=== PATIENT | female | born 1980 | race Caucasian/White ===

== ENCOUNTER 2016-08-15 06:46 | Emergency (ER) | payer MEDICAID ==
[~2016-08-15] VITALS: Wt 81.8 kg
[2016-08-15] MEDS ORDERED: ONDANSETRON 4 MG INJ IV STA (07:02)
[2016-08-15] MEDS ORDERED: DICLOFENAC SODIUM 37.5 MG/ML VIAL IV STA (07:02)
[2016-08-15] MEDS ORDERED: morphine 4 MG/ML VIAL IV STA ×2 (07:02→08:12)
[2016-08-15] MEDS ORDERED: SOD CHLORIDE 0.9% 1,000 ML IV ONE (07:30)
[2016-08-15 07:44] LABS: BASOPHIL # 0.1 10^3/ul (0.0-0.1); EOSINOPHILS # 0.7 10^3/ul (0.0-0.5); EOSINOPHILS % 6.3 % (0.0-7.0); HEMATOCRIT 41.3 % (37.0-47.0); HEMOGLOBIN 13.8 g/dl (12.0-16.0); LYMPHOCYTES # 3.8 10^3/ul (0.8-2.9); LYMPHOCYTES % 35.7 % (15.0-51.0); MEAN CORPUSCULAR HEMOGLOBIN 28.4 pg (29.0-33.0); MEAN CORPUSCULAR HGB CONC 33.5 g/dl (32.0-37.0); MEAN CORPUSCULAR VOLUME 84.9 fl (82.0-101.0); MEAN PLATELET VOLUME 9.8 fl (7.4-10.4); MONOCYTE # 0.7 10^3/ul (0.3-0.9); MONOCYTES % 6.4 % (0.0-11.0); NEUTROPHIL # 5.3 10^3/ul (1.6-7.5); NEUTROPHILS % 50.6 % (39.0-77.0); PLATELET COUNT 310 10^3/UL (140-440); RED BLOOD COUNT 4.86 10^6/ul (4.20-5.40); RED CELL DISTRIBUTION WIDTH 13.6 % (11.5-14.5); UNCORRECTED WBC 10.6 10^3/ul (4.8-10.8); WHITE BLOOD COUNT 10.6 10^3/ul (4.8-10.8)
[2016-08-15 07:52] LABS: CONDITION 1
[2016-08-15 07:53] LABS: ALBUMIN 4.2 g/dl (3.3-4.9)
[2016-08-15 07:54] LABS: POTASSIUM 4.5 mmol/L (3.5-5.1)
[2016-08-15 07:56] LABS: BILIRUBIN,INDIRECT 0.4 mg/dl (0-1.1); BILIRUBIN,TOTAL 0.4 mg/dl (0.2-1.3); CREATININE 0.69 mg/dl (0.44-1.00)
[2016-08-15 07:57] LABS: ALBUMIN/GLOBULIN RATIO 1.07; CALCIUM 9.2 mg/dl (8.4-10.2); TOTAL PROTEIN 8.1 g/dl (6.1-8.1)
--- NOTE | 2016-08-15 08:29 | RADRPT ---
PROCEDURE: CT KUB (renal stone survey). CLINICAL INDICATION: Left-sided flank pain. Rule out ureteral stone. History of kidney stones. TECHNIQUE: CT KUB (Renal Stone Survey) without contrast was performed on a multidetector high-reso lution CT scanner. No IV contrast was administered. Coronal and sagittal reformatted images were o btained from the axial source images. Images were reviewed on a high-resolution PACS workstation. Th e total exam CTDI equals 19.99 mGy and the total exam DLP equals 1165.45 mGy-cm. One or more of the following dose reduction techniques were used: - Automated exposure control. - Adjustment of the mA and/or kV according to patient size. - Use of iterative reconstruction technique. COMPARISON: No prior studies are available for comparison. FINDINGS: CT renal stone survey: The kidneys are symmetric in size, position, and morphology. A tiny 3 mm stone is seen in the dista l left ureter immediately proximal to the distal left UVJ. This small calculus is causing mild obst ructive uropathy with mild left-sided hydroureteronephrosis. There is no evidence for obstructive ur opathy on the right side. The right ureter is clear and normal. The bladder, as visualized, is unr emarkable. CT abdomen: The lung bases are clear. The heart size is normal, without pericardial thickening or effusion. The liver is normal in size and density without focal mass or intrahepatic biliary dilatation. The spl een is normal in size and homogeneous in density. The stomach is partially collapsed, but is grossl y unremarkable. The pancreas as visualized is normal. The gallbladder and biliary tree are unremar kable and there is no evidence for biliary dilatation. The adrenal glands are symmetric and normal. The aorta is of normal caliber. There is no retroperitoneal lymphadenopathy. The romario hepatis re gion is clear. The bowel and mesentery, as visualized, are equally unremarkable. CT pelvis: The small bowel loops situated within the pelvis are unremarkable. The pelvic organs are normal. T he pelvic sidewalls and inguinal regions are clear. The sigmoid colon and rectum are all unremarkab le. No pelvic mass or adenopathy is seen. No significant free fluid is identified. No acute inflamm ation is seen. The surrounding osseous structures are unremarkable. No osteolytic or osteoblastic lesion is detect ed. IMPRESSION: 1. Tiny 3 mm calculus in the distal left ureter just immediately proximal to the left UVJ causing m ild proximal obstructive uropathy. 2. Otherwise, the remainder of the CT renal stone survey examination is unremarkable. RPTAT: HMJB .Gaurang Hogan MD, Date Time Electronically viewed and signed by .Gaurang Hogan MD, on 08/15/2016 08:29 .B/
[2016-08-15 08:58] LABS: URINE BLOOD (Dip) POC 2+ (NEGATIVE)
[2016-08-15 09:24] LABS: ADD UMIC YES; URINE BILIRUBIN (Dip) NEGATIVE (NEGATIVE); URINE BLOOD (Dip) 2+ (NEGATIVE); URINE COLOR LT. YELLOW (YELLOW); URINE GLUCOSE (Dip) NEGATIVE (NEGATIVE); URINE KETONES (Dip) NEGATIVE (NEGATIVE); URINE LEUKOCYTE ESTERASE (Dip) NEGATIVE (NEGATIVE); URINE NITRITE (Dip) NEGATIVE (NEGATIVE); URINE TOTAL PROTEIN (Dip) NEGATIVE (NEGATIVE); URINE UROBILINOGEN (Dip) 0.2 E.U./dL (0.1-1.0)
[2016-08-15] MEDS ORDERED: FENTAnyl 50 MCG/ML VIAL IV ONE (09:30)
[2016-08-15 09:33] LABS: SQUAMOUS EPITHELIAL CELL,UR FEW
[2016-08-15] MEDS ORDERED: HYDR-906 PO (10:29)
[2016-08-15] MEDS ORDERED: ONDA4TAB14 PO (10:29)
[2016-08-15] MEDS ORDERED: NAPR-688 PO (10:29)
--- NOTE | 2016-08-15 10:35 | ERD ---
ER Documentation Chief Complaint Date/Time DATE: 08/15/16 TIME: 10:32 Chief Complaint r. flank pain x2 days increased in severity this am HPI This 35-year-old female presents with right flank pain for 2 days. Became much worse this morning. She believes that she has had kidney stones in the past but has never been diagnosed with such. Pain is severe and has mild radiation to the anterior abdomen and is sharp in nature. She has not had any fevers or chills denies diarrhea or fevers but has had nausea and vomited once. ROS All systems reviewed and are negative except as per history of present illness. Medications Home Meds Active Scripts Ondansetron (Ondansetron Odt) 4 Mg Tab.rapdis, 4 MG PO Q6H Y for NAUSEA AND/OR VOMITING, #10 TAB Prov:DANISHAZION DO 08/15/16 Naproxen* (Naproxen*) 500 Mg Tablet, 500 MG PO BID, #20 TAB Prov:DANISHAZION DO 08/15/16 Hydrocodone/Acetaminophen ([place] 5-325 Tablet) 1 Each Tablet, 1 EACH PO Q6, #14 TAB Prov:ZION RAMAN DO 08/15/16 Allergies Allergies: Coded Allergies: No Known Allergy (Unverified , 06/13/12) PMhx/Soc History of Surgery: Yes (APPENDECTOMY, TUBAL LIGATION) Anesthesia Reaction: No Hx Neurological Disorder: No Hx Respiratory Disorders: No Hx Cardiac Disorders: No Hx Psychiatric Problems: No Hx Miscellaneous Medical Probl: No Hx Alcohol Use: No Hx Substance Use: No Hx Tobacco Use: No Smoking Status: Never smoker Physical Exam Vitals Vital Signs Date Time Temp Pulse Resp B/P Pulse Ox O2 Delivery O2 Flow Rate FiO2 08/15/16 08:52 98.1 69 20 111/88 98 Room Air 08/15/16 06:59 991.1 94 20 127/61 100 Physical Exam Const: [] Mild distress, appears uncomfortable holding flank with hand. Head: Atraumatic Eyes: Normal Conjunctiva ENT: Normal External Ears, Nose and Mouth. Neck: Full range of motion..~ No meningismus. Resp: Clear to auscultation bilaterally Cardio: Regular rate and rhythm, no murmurs Abd: Soft, non tender, non distended. Normal bowel sounds Skin: No petechiae or rashes Back: No midline or left CVA tenderness positive. Ext: No cyanosis, or edema Neur: Awake and alert 3, no focal deficits Psych: Normal Mood and Affect Result Diagram: 08/15/1615 08/15/1615 Results 24 hrs Laboratory Tests Test 08/15/16 07:15 08/15/16 08:55 08/15/16 08:58 Alanine Aminotransferase (ALT/SGPT) 20IU/L Albumin 4.2g/dl Albumin/Globulin Ratio 1.07 Alkaline Phosphatase 65IU/L Anion Gap 18 Aspartate Amino Transf (AST/SGOT) 20IU/L Basophils # 0.110^3/ul Basophils % 1.0% Blood Morphology Comment Blood Urea Nitrogen 14mg/dl Calcium Level 9.2mg/dl Carbon Dioxide Level 24mmol/L Chloride Level 106mmol/L Creatinine 0.69mg/dl Direct Bilirubin 0.00mg/dl Eosinophils # 0.710^3/ul Eosinophils % 6.3% Globulin 3.90g/dl Glucose Level 90mg/dl Hematocrit 41.3% Hemoglobin 13.8g/dl Indirect Bilirubin 0.4mg/dl Lipase 112U/L Lymphocytes # 3.810^3/ul Lymphocytes % 35.7% Mean Corpuscular Hemoglobin 28.4pg Mean Corpuscular Hemoglobin Concent 33.5g/dl Mean Corpuscular Volume 84.9fl Mean Platelet Volume 9.8fl Monocytes # 0.710^3/ul Monocytes % 6.4% Neutrophils # 5.310^3/ul Neutrophils % 50.6% Nucleated Red Blood Cells # 0.010^3/ul Nucleated Red Blood Cells % 0.0/100WBC Platelet Count 66831^3/UL Potassium Level 4.5mmol/L Red Blood Count 4.8610^6/ul Red Cell Distribution Width 13.6% Sodium Level 143mmol/L Total Bilirubin 0.4mg/dl Total Protein 8.1g/dl White Blood Count 10.610^3/ul Urine Bilirubin NEGATIVE Urine Clarity CLEAR Urine Color LT. YELLOW Urine Glucose NEGATIVE% Urine Hemoglobin 2+ Urine Ketones NEGATIVE Urine Leukocyte Esterase NEGATIVE Urine Microscopic RBC 5-10/HPF Urine Microscopic WBC 0-2/HPF Urine Nitrite NEGATIVE Urine Specific [place] 1.025 Urine Squamous Epithelial Cells FEW Urine Total Protein NEGATIVE Urine Urobilinogen 0.2 E.U./dL Urine pH 6.0 Bedside Urine Blood 2+ Bedside Urine Glucose (UA) Negative Bedside Urine Ketones (LAB) Negative Bedside Urine Leukocyte Esterase (L Negative Bedside Urine Nitrite (LAB) Negative Bedside Urine Protein (LAB) Negative Bedside Urine pH (LAB) 6.0 Current Medications Medications (Trade) Dose Ordered Sig/Júnior Route PRN Reason Start Time Stop Time Status Last Admin Dose Admin Sodium Chloride (NS) 1,000 ml @ 1,000 mls/hr Q1H ONCE IV 08/15/16 07:30 08/15/16 08:29 DC 08/15/16 07:35 Diclofenac Sodium (Dyloject) 37.5 mg ONCE STAT IV 08/15/16 07:02 08/15/16 07:06 DC 08/15/16 07:35 Morphine Sulfate (morphine) 4 mg ONCE STAT IV 08/15/16 07:02 08/15/16 07:06 DC 08/15/16 07:35 Ondansetron HCl (Zofran Inj) 4 mg ONCE STAT IV 08/15/16 07:02 08/15/16 07:06 DC 08/15/16 07:35 Morphine Sulfate (morphine) 4 mg ONCE STAT IV 08/15/16 08:12 08/15/16 08:13 DC 08/15/16 08:15 Fentanyl (Sublimaze) 50 mcg ONCE ONCE IV 08/15/16 09:30 08/15/16 09:31 DC 08/15/16 09:14 Procedures/MDM Ureteral stone with colic. Patient has no evidence of infection and the stone is arty at the UPJ and will likely pass soon. Patient was given anti- inflammatory diclofenac as well as 2 doses of morphine and Zofran. This resolved her symptoms. She was also given a liter of normal saline. I have very low suspicion for septic stone with her normal urinalysis and nonelevated white count. Pain is controlled emergency room and discharging with [place] as well as naproxen and Zofran. Her primary care follow-up with instructions to obtain urological referral. Also given her strict return precautions to the ER pain is not controlled. CT abdomen and pelvis interpretation: 3 mm left ureteral stone at the UPJ. Mild hydronephrosis, no free air, no obstruction, no bony abnormalities. Departure Diagnosis: Primary Impression: Ureteral colic Condition: Stable Patient Instructions: Kidney Stone W/ Colic Referrals: [facility] YOU HAVE RECEIVED A MEDICAL SCREENING EXAM AND THE RESULTS INDICATE THAT YOU DO NOT HAVE A CONDITION THAT REQUIRES URGENT TREATMENT IN THE EMERGENCY DEPARTMENT. FURTHER EVALUATION AND TREATMENT OF YOUR CONDITION CAN WAIT UNTIL YOU ARE SEEN IN YOUR DOCTORS OFFICE WITHIN THE NEXT 1-2 DAYS. IT IS YOUR RESPONSIBILITY TO MAKE AN APPOINTMENT FOR FOLOW-UP CARE. IF YOU HAVE A PRIMARY DOCTOR --you should call your primary doctor and schedule an appointment IF YOU DO NOT HAVE A PRIMARY DOCTOR YOU CAN CALL OUR PHYSICIAN REFERRAL HOTLINE AT IF YOU CAN NOT AFFORD TO SEE A PHYSICIAN YOU CAN CHOSE FROM THE FOLLOWING [facility] [address] [facility] [address] [facility] [facility] [address] [facility] [address] [facility] [address] [facility]. [facility]. [address] Additional Instructions: Llame al doctor MAANA y karen ruthie AYLEEN PARA DENTRO DE 2-3 YUEN.Dgale a la secretaria que nosotros le instruimos hacer esta ayleen. Consigue un referral para un Urology. Avise o llame si saenz condicin se empeora antes de la ayleen. Regresa aqui si peor o no mejor. ZION RAMAN DO Aug 15, 2016 10:35
[2016-08-15 11:15] VITALS: BP 119/78; PULSE 64; RESP 16; TEMP 98.1
[2016-08-15] MEDS ORDERED: OXYC-203 PO (11:22)
[2016-08-15] MEDS ORDERED: morphine 10 MG INJ IM ONE (11:30)
== END 2016-08-15 11:40 | disposition home or self-care (01) ==
LOC: E/R 06:46
DX: N23 Unspecified renal colic (principal); R11.2 Nausea with vomiting, unspecified
CPT/HCPCS: 74176; 80053; 81001; 83690; 85025; J2270; J2405; J3010; J7030; Z7610; 36415; 81003; 96372; 96374; 96375; 96376

== ENCOUNTER 2016-12-31 21:56 | Emergency (ER) | payer MEDICAID ==
[~2016-12-31] VITALS: Ht 160 cm; Wt 92.0 kg
[~2016-12-31 21:56] MED LIST: HYDR-906 PO; NAPR-688 PO; ONDA4TAB14 PO; OXYC-203 PO
[2016-12-31 22:45] VITALS: Ht 160 cm; Wt 92.0 kg
--- NOTE | 2016-12-31 23:40 | ERD ---
ER Documentation Chief Complaint Date/Time DATE: 12/31/16 TIME: 23:33 Chief Complaint FEVER, DIARRHEA, ABDOMINAL PAIN X 4 DAYS, POOR ORAL INTAKE. HPI This pleasant 36-year-old female presents to emergency department today with , reporting diarrhea 4 days. Patient reports diarrhea is watery, green , with abdominal cramping, nausea, and vomiting. Patient reports she feels dizzy, states she has not been able to eat solid food in the last 2 days, has been able to sip liquids, patient denies travel, sick contacts, blood in her stool, chest pain, shortness of breath, or palpitations. Patient reports that diarrhea was worse yesterday and that it seems to be decreasing, nausea and vomiting seem to be the same. ROS All systems reviewed and are negative except as per history of present illness. Medications Home Meds Active Scripts Oxycodone HCl/Acetaminophen (Percocet 7.5-325 mg Tablet) 1 Each Tablet, 1 EACH PO Q6, #14 TAB Prov:DANISHAZION DO 08/15/16 Ondansetron (Ondansetron Odt) 4 Mg Tab.rapdis, 4 MG PO Q6H Y for NAUSEA AND/OR VOMITING, #10 TAB Prov:DANISHAZION DO 08/15/16 Naproxen* (Naproxen*) 500 Mg Tablet, 500 MG PO BID, #20 TAB Prov:DANISHAZION DO 08/15/16 Hydrocodone/Acetaminophen ([place] 5-325 Tablet) 1 Each Tablet, 1 EACH PO Q6, #14 TAB Prov:ZION RAMAN DO 08/15/16 Allergies Allergies: Coded Allergies: No Known Allergy (Unverified , 06/13/12) PMhx/Soc History of Surgery: Yes (APPENDECTOMY, TUBAL LIGATION) Anesthesia Reaction: No Hx Neurological Disorder: No Hx Respiratory Disorders: No Hx Cardiac Disorders: No Hx Psychiatric Problems: No Hx Miscellaneous Medical Probl: No Hx Alcohol Use: No Hx Substance Use: No Hx Tobacco Use: No Smoking Status: Never smoker Physical Exam Vitals Vital Signs Date Time Temp Pulse Resp B/P Pulse Ox O2 Delivery O2 Flow Rate FiO2 12/31/16 22:45 98.5 80 17 125/77 100 Vitals stable, triage notes reviewed Physical Exam Const: No acute distress Head: Atraumatic Eyes: Normal Conjunctiva, PERRLA, EOMI ENT: Normal External Ears, Nose and Mouth, mucous membranes moist Neck: Full range of motion..~ No meningismus. Resp: Chest rise and fall symmetrically, clear to auscultation bilaterally Cardio: Regular rate and rhythm, no murmurs Abd: Abdomen distended, generalized tenderness. No CVA tenderness. No rebound tenderness. Skin: Back: No midline or flank tenderness Ext: Neur: Awake and alert Psych: Normal Mood and Affect Results 24 hrs Current Medications Medications (Trade) Dose Ordered Sig/Júnior Route PRN Reason Start Time Stop Time Status Last Admin Dose Admin Sodium Chloride (NS) 1,000 ml @ 1,000 mls/hr Q1H ONCE IV 01/01/17 00:00 01/01/17 00:59 01/01/17 00:01 Ondansetron HCl (Zofran Inj) 4 mg ONCE STAT IV 12/31/16 23:41 12/31/16 23:42 DC 01/01/17 00:01 Ketorolac Tromethamine (Toradol) 15 mg ONCE STAT IV 12/31/16 23:41 12/31/16 23:42 DC 01/01/17 00:01 Procedures/MDM This pleasant 36-year-old female presents to the emergency department with 4 day history of abdominal pain diarrhea nausea vomiting. , pancreatitis , cholecystitis, biliary colic, appendicitis not likely. Physical exam and history consistent with a viral gastroenteritis, patient is treated with normal saline, Zofran, and Toradol effectively. Patient remains in emergency department for 60 minutes is able to tolerate water and states abdominal pain has subsided when reevaluated. Patient will be discharged home with Zofran, teaching instructions for clear liquid diet advance as tolerated. Increase fluids, increase rest. Return to emergency department if symptoms fail to improve as anticipated, blood in stool, vomiting blood, worsening of overall symptoms, abdominal pain. I feel the patient is stable for discharge at this time. I have discussed results, examination findings, the treatment plan with the patient and family present prior to discharge. Indications for emergent reevaluation, side effects of medication were also discussed. All questions were answered. Patient verbalizes understanding and agrees with plan of care. Departure Diagnosis: Primary Impression: Gastroenteritis Condition: Good Patient Instructions: Gastroenteritis, Viral (6Y-Adult) Additional Instructions: Thank you for for coming to [facility] for your care today. Please ask your nurse or provider if you have questions about your care today and do not leave until all your questions have been answered. Please use any medications given as directed and follow-up with your doctor (or the doctor you were referred to) in the next 2-3 days. If you do not have a primary care doctor you may follow up at [place] [facility] [place] You may also use motrin and tylenol as needed for fever and/or pain unless instructed otherwise by your provider or nurse. Indications for more urgent follow-up have been discussed, but you may return to the Emergency Department at ANY time for any worrisome or worsening symptoms. If you have abdominal pain, please know that no test or exam you received is perfect and you should follow up within 8 hours for continued pain. If you had any imaging studies today, such as an X-Ray or CT Scan, these studies will be reviewed later by a radiologist. You will be called if there are important findings that were not identified today, so make sure the contact information you provided at registration is correct. If you received any narcotic pain control medicine today, such as Vicodin, Morphine or Dilaudid, your coordination and judgment may be affected for a number of hours. Please do not drive or operate heavy machinery, and you may want someone to assist you at home. If you were given a prescription for narcotic medication, be aware that it is very addictive- use sparingly and only if necessary. FEDERICO GARCIA Dec 31, 2016 23:40
[2016-12-31] MEDS ORDERED: KETOROLAC 15 MG INJ IV STA (23:41)
[2016-12-31] MEDS ORDERED: ONDANSETRON 4 MG INJ IV STA (23:41)
[2017-01-01] MEDS ORDERED: SOD CHLORIDE 0.9% 1,000 ML IV ONE
[2017-01-01] MEDS ORDERED: ONDA4TAB14 PO (00:45)
== END 2017-01-01 00:55 | disposition home or self-care (01) ==
LOC: FTE 21:56
DX: K52.9 Noninfective gastroenteritis and colitis, unspecified (principal)
CPT/HCPCS: 96374; 96375; J1885; J2405; J7030; Z7502

== ENCOUNTER 2017-04-27 19:46 | Emergency (ER) | payer MEDICAID ==
[~2017-04-27] VITALS: Ht 165.1 cm; Wt 92.0 kg
[2017-04-27 20:08] VITALS: Ht 165.1 cm; Wt 92.0 kg
[2017-04-27] MEDS ORDERED: KETOROLAC 60 MG INJ IM STA (22:24)
[2017-04-27] MEDS ORDERED: GUAIFENESIN/CODEINE 5ML CUP PO ONE (22:30)
--- NOTE | 2017-04-27 22:52 | ERD ---
ER Documentation Chief Complaint Date/Time DATE: 04/27/17 TIME: 22:50 Chief Complaint pt reports cough and fever for 4 days HPI 36-year-old female presents to the emergency department for complaints of cough , fever, runny nose nasal congestion, on and off wheezing for 4 days. Patient has been having body aches. Patient took Tylenol at home with much relief. Patient does not have any chest pain palpitations. Patient denies any dizziness. Patient denies any sick contacts. ROS All systems reviewed and are negative except as per history of present illness. Medications Home Meds Active Scripts Ibuprofen* (Motrin*) 600 Mg Tab, 600 MG PO Q6H Y for PAIN AND OR ELEVATED TEMP, #30 TAB Prov:DELTA TAMEZ NP 04/27/17 Cetirizine Hcl* (Zyrtec*) 10 Mg Capsule, 10 MG PO DAILY, #30 TAB.CHEW Prov:DELTA TAMEZ NP 04/27/17 Guaifenesin-Codeine Phosphate* (Guaifenesin* AC Cough Syrup) 473 Ml Liquid, 10 ML PO Q4H Y for COUGH, #120 ML Prov:DELTA TAMEZ NP 04/27/17 Albuterol Sulfate* (Proair HFA*) 8.5 Gm Hfa.aer.ad, 2 PUFF INH Q4H Y for WHEEZING AND SOB, #1 INHALER Prov:DELTA TAMEZ NP 04/27/17 Ondansetron (Ondansetron Odt) 4 Mg Tab.rapdis, 4 MG PO Q6H Y for NAUSEA AND/OR VOMITING, #10 TAB Prov:JOSEFEDERICO 01/01/17 Oxycodone HCl/Acetaminophen (Percocet 7.5-325 mg Tablet) 1 Each Tablet, 1 EACH PO Q6, #14 TAB Prov:ZION RAMAN DO 08/15/16 Ondansetron (Ondansetron Odt) 4 Mg Tab.rapdis, 4 MG PO Q6H Y for NAUSEA AND/OR VOMITING, #10 TAB Prov:ZION RAMAN DO 08/15/16 Naproxen* (Naproxen*) 500 Mg Tablet, 500 MG PO BID, #20 TAB Prov:ZION RAMAN DO 08/15/16 Hydrocodone/Acetaminophen ([place] 5-325 Tablet) 1 Each Tablet, 1 EACH PO Q6, #14 TAB Prov:ZION RAMAN DO 08/15/16 Allergies Allergies: Coded Allergies: No Known Allergy (Unverified , 06/13/12) PMhx/Soc History of Surgery: Yes (APPENDECTOMY, TUBAL LIGATION) Anesthesia Reaction: No Hx Neurological Disorder: No Hx Respiratory Disorders: No Hx Cardiac Disorders: No Hx Psychiatric Problems: No Hx Miscellaneous Medical Probl: No Hx Alcohol Use: No Hx Substance Use: No Hx Tobacco Use: No Smoking Status: Never smoker FmHx Family History: No coronary disease, No diabetes, No other Physical Exam Vitals Vital Signs Date Time Temp Pulse Resp B/P Pulse Ox O2 Delivery O2 Flow Rate FiO2 04/27/17 20:08 99.2 80 16 118/58 99 Physical Exam GENERAL: The patient is well developed and appropriate for usual state of health, in no apparent distress. CHEST: Clear to auscultation bilaterally. There are no rales, wheezes or rhonchi. HEART: Regular rate and rhythm. No murmurs, clicks, rubs or gallops. No S3 or S4. ABDOMEN: Soft, nontender and nondistended. Good bowel sounds. No rebound or guarding. No gross peritonitis. No gross organomegaly or masses. No Riddle sign or McBurney point tenderness. BACK: No midline or flank tenderness. EXTREMITIES: Equal pulses bilaterally. There is no peripheral clubbing, cyanosis or edema. No focal swelling or erythema. Full range of motion. Grossly neurovascularly intact. NEURO: Alert and oriented. Cranial nerves 2-12 intact. Motor strength in all 4 extremities with 5/5 strength. Sensation grossly intact. Normal speech and gait. SKIN: There is no apparent rash or petechia. The skin is warm and dry. HEMATOLOGIC AND LYMPHATIC: There is no evidence of excessive bruising or lymphedema. No gross cervical, axillary, or inguinal lymphadenopathy. Results 24 hrs Current Medications Medications (Trade) Dose Ordered Sig/Júnior Route PRN Reason Start Time Stop Time Status Last Admin Dose Admin Ketorolac Tromethamine (Toradol) 60 mg ONCE STAT IM 04/27/17 22:24 04/27/17 22:26 DC 04/27/17 22:49 Guaifenesin/ Codeine Phosphate (Robitussin Ac Liquid Cup) 10 ml ONCE ONCE PO 04/27/17 22:30 04/27/17 22:31 DC 04/27/17 22:48 Patient was given cough medication here in the emergency department, verbalized very much better afterwards. Patient was given medication for pain here in emergency department, after treatment, patient verbalized feeling much better. Patient's pain is improved. PROCEDURE: XR Chest. CLINICAL INDICATION: Cough. TECHNIQUE: Single frontal view. COMPARISON: 11/15/2008. FINDINGS: The lungs are clear. The heart size is normal. There is no pleural effusion. There is no pneumothorax. IMPRESSION: 1. Normal chest radiograph. 2. No change from 11/15/2008. RPTAT: QQ .Kirill Castillo MD, MD Date Time Electronically viewed and signed by .Kirill Castillo MD, MD on 04/27/2017 23:23 .R/ CC: DELTA TAMEZ [employer] Procedures/MDM Medical Decision Making: Patient symptoms are most likely consistent with acute bronchitis, which viral in origin. There is low suspicion for Pneumonia at this time since patients lungs sounds are clear, patient O2 saturation is normal and patient doesnt show any respiratory distress. Patients chest xray doesnt show infiltrates or any other cardiopulmonary emergencies at this time. There is low suspicion for other cardiopulmonary emergencies at this time such as CHF, Pulmonary Embolism, Pneumothorax, Aortic Aneurysm or any other cardiopulmonary emergencies at this time. There is low suspicion for sepsis. Patient appears well and is hemodynamically stable. Fever is controlled with medicines. Disposition: Home. Condition: Stable Prescriptions: Guaifenasin with codeine, Zyrtec, albuterol, ibuprofen Instructions: Patient is advised to take medications as prescribed. Patient is advised to rest. Patient advised to increase fluid intake, do humidifier at home and if possible, do salt water gargles. Patient is advised that if symptoms are worse, shortness of breath, uncontrolled fever, stridor, vomiting, worst signs and symptoms to return to emergency department immediately. Otherwise, patient is advised to follow up with primary doctor in 5-7 days. Disclaimer: Inadvertent spelling and grammatical errors are likely due to EHR/ dictation software use and do not reflect on the overall quality of patient care. Also, please note that the electronic time recorded on this note does not necessarily reflect the actual time of the patient encounter. Departure Diagnosis: Primary Impression: Acute bronchitis Bronchitis organism: unspecified organism Qualified Code: J20.9 - Acute bronchitis, unspecified organism Condition: Stable Patient Instructions: Bronchitis With Wheezing (Adult) Additional Instructions: Patient is advised to take medications as prescribed. Patient is advised to rest. Patient advised to increase fluid intake, do humidifier at home and if possible, do salt water gargles. Patient is advised that if symptoms are worse, shortness of breath, uncontrolled fever, stridor, vomiting, worst signs and symptoms to return to emergency department immediately. Otherwise, patient is advised to follow up with primary doctor in 5-7 days. DELTA TAMEZ NP Apr 27, 2017 22:52
--- NOTE | 2017-04-27 23:23 | RADRPT ---
PROCEDURE: XR Chest. CLINICAL INDICATION: Cough. TECHNIQUE: Single frontal view. COMPARISON: 11/15/2008. FINDINGS: The lungs are clear. The heart size is normal. There is no pleural effusion. There is no pneumothorax. IMPRESSION: 1. Normal chest radiograph. 2. No change from 11/15/2008. RPTAT: QQ .Kirill Castillo MD, MD Date Time Electronically viewed and signed by .Kirill Castillo MD, MD on 04/27/2017 23:23 .R/
[2017-04-27] MEDS ORDERED: GUAI473L22 PO (23:31)
[2017-04-27] MEDS ORDERED: IBUP-1542 PO (23:31)
[2017-04-27] MEDS ORDERED: ALBU8.5H3 INH (23:31)
[2017-04-27] MEDS ORDERED: CETI10CA PO (23:31)
== END 2017-04-27 23:39 | disposition home or self-care (01) ==
LOC: FTE 19:46
DX: J20.9 Acute bronchitis, unspecified (principal)
CPT/HCPCS: 71010; 96372; J1885; Z7502; Z7610

== ENCOUNTER 2017-12-14 21:59 | Emergency (ER) | END 2017-12-15 03:28 | disposition home or self-care (01) ==

== ENCOUNTER 2018-08-02 08:16 | Emergency (ER) | payer MEDICAID, OTHER ==
[~2018-08-02] VITALS: Wt 93.8 kg
[~2018-08-02 08:16] MED LIST changes: +ALBU8.5H8 INH; +CETI10CA PO; +FLUT9.9S NASAL; +GUAI-111 PO; +GUAI473L22 PO; +HYDR-4011 PO; -HYDR-906 PO; +IBUP-1542 PO
[2018-08-02] MEDS ORDERED: KETOROLAC 15 MG INJ IV STA (08:35)
[2018-08-02] MEDS ORDERED: SODIUM CHLORIDE 0.9% 1L BAG IV* STA (08:35)
[2018-08-02] MEDS ORDERED: ONDANSETRON 4 MG INJ IV STA (08:35)
--- NOTE | 2018-08-02 08:49 | ERD ---
ER Documentation Chief Complaint Chief Complaint flu like symptoms x 2 days,body aches, ap, bvomiting HPI This is a 37-year-old female with a past medical history of appendicitis status post appendectomy, status post and bilateral tubal ligation who is presenting with 2 days of flulike symptoms, fever, chills, full body aches, transient waxing and waning general cramping abdominal pain, nausea and multiple episodes of nonbilious nonbloody vomiting. The patient does not endorse any exacerbating or alleviating factors. She has not eaten anything out of the ordinary. She does not have any known sick contacts. The patient has had no headache or vision changes. The patient does not endorse neck or back pain. The patient denies lightheadedness or dizziness. The patient has had no chest pain or trouble breathing. The patient denies changes to bowel movements or urination. The patient has had no focal deficits. The patient has had no weakness or numbness or tingling to the face or extremities. ROS All systems reviewed and are negative except as per history of present illness. Medications Home Meds Reported Medications Guaifenesin* (Robitussin*) 100 Mg/5 Ml Syrup, 200 MG PO Q4H PRN for COUGH, ML 08/02/18 Discontinued Scripts Guaifenesin/Pseudoephedrne HCl (Mucinex D ER 600-60 mg Tablet) 1 Each Tab.er.12h, 1 EACH PO BID, #10 TAB Prov:JOSE,FEDERICO 12/15/17 Ibuprofen* (Ibuprofen*) 600 Mg Tablet, 600 MG PO Q6, #20 TAB Prov:JOSE,FEDERICO 12/15/17 Fluticasone Propionate (Flonase Allergy Relief) 9.9 Ml Hunt.susp, 1 SPRAY NASAL BID, #1 BOTTLE TO EACH NOSTRIL Prov:JOSE,FEDERICO 12/15/17 Ibuprofen* (Motrin*) 600 Mg Tab, 600 MG PO Q6H PRN for PAIN AND OR ELEVATED TEMP, #30 TAB Prov:DELTA TAMEZ NP 04/27/17 Cetirizine Hcl* (Zyrtec*) 10 Mg Capsule, 10 MG PO DAILY, #30 TAB.CHEW Prov:DELTA TAMEZ NP 04/27/17 Guaifenesin-Codeine Phosphate* (Guaifenesin* AC Cough Syrup) 473 Ml Liquid, 10 ML PO Q4H PRN for COUGH, #120 ML Prov:DELTA TAMEZ [employer]INE[employer] 04/27/17 Albuterol Sulfate* (Proair HFA*) 8.5 Gm Hfa.aer.ad, 2 PUFF INH Q4H PRN for WHEEZING AND SOB, #1 INHALER Prov:DELTA TAMEZ [employer]INE[employer] 04/27/17 Ondansetron (Ondansetron Odt) 4 Mg Tab.rapdis, 4 MG PO Q6H PRN for NAUSEA AND/OR VOMITING, #10 TAB Prov:JOSEFEDERICO 01/01/17 Oxycodone HCl/Acetaminophen (Percocet 7.5-325 mg Tablet) 1 Each Tablet, 1 EACH PO Q6, #14 TAB Prov:ZION RAMAN DO 08/15/16 Ondansetron (Ondansetron Odt) 4 Mg Tab.rapdis, 4 MG PO Q6H PRN for NAUSEA AND/OR VOMITING, #10 TAB Prov:ZION RAMAN DO 08/15/16 Naproxen* (Naproxen*) 500 Mg Tablet, 500 MG PO BID, #20 TAB Prov:ZION RAMNA DO 08/15/16 Hydrocodone/Acetaminophen ([place] 5-325 Tablet) 1 Each Tablet, 1 EACH PO Q6, #14 TAB Prov:GREENPIPEZION DO 08/15/16 Allergies Allergies: Coded Allergies: No Known Allergy (Unverified , 06/13/12) PMhx/Soc History of Surgery: Yes (APPENDECTOMY, TUBAL LIGATION) Anesthesia Reaction: No Hx Neurological Disorder: No Hx Respiratory Disorders: No Hx Cardiac Disorders: No Hx Psychiatric Problems: No Hx Miscellaneous Medical Probl: No Hx Alcohol Use: No Hx Substance Use: No Hx Tobacco Use: No FmHx Family History: No diabetes Physical Exam Vitals Vital Signs Date Temp Pulse Resp B/P (MAP) Pulse Ox O2 O2 Flow FiO2 Time Delivery Rate 08/02/18 92 20 112/57 98 Room Air 10:39 (75) 08/02/18 101.2 09:10 08/02/18 102.6 120 18 140/79 100 08:20 (99) Physical Exam Const: No apparent distress, well-developed, well-nourished Head: Normocephalic, Atraumatic Eyes: Normal Conjunctiva. Extraocular movements intact. Pupils equal, round and reactive to light ENT: Normal External Ears, Nose and Mouth. Neck: Full range of motion. No meningismus. Resp: Clear to auscultation bilaterally, No wheezes, rales or rhonchi Cardio: Regular rhythm. Tachycardia. No murmurs, rubs or gallops Abd: Soft, non tender, non distended. Normal bowel sounds Skin: No petechiae or rashes Back: No midline tenderness. No CVA tenderness Ext: No cyanosis, or edema Neur: Awake and alert, oriented 4. Cranial nerves intact. No facial droop. Normal strength, sensation and coordination. Psych: Normal Mood and Affect Result Diagram: 08/02/18 0945 08/02/18 0854 Results 24 hrs Laboratory Tests Test 08/02/18 08:52 08/02/18 08:54 08/02/18 09:45 08/02/18 10:45 POC Venous 1.7 mmol/L Lactate Sodium Level 143 mmol/L Potassium Level 4.2 mmol/L Chloride Level 103 mmol/L Carbon Dioxide 26 mmol/L Level Anion Gap 14 Blood Urea 12 mg/dl Nitrogen Creatinine 0.52 mg/dl Est Glomerular > 60 mL/min Filtrat Rate mL/min Glucose Level 100 mg/dl Calcium Level 9.1 mg/dl Total Bilirubin 0.3 mg/dl Direct Bilirubin 0.00 mg/dl Indirect 0.3 mg/dl Bilirubin Aspartate Amino 22 IU/L Transf (AST/SGOT) Alanine 17 IU/L Aminotransferase (ALT/SGPT) Alkaline 64 IU/L Phosphatase Troponin I < 0.012 ng/ml Total Protein 7.9 g/dl Albumin 4.6 g/dl Globulin 3.30 g/dl Albumin/Globulin 1.39 Ratio White Blood Count 4.9 10^3/ul Red Blood Count 4.29 10^6/ul Hemoglobin 12.2 g/dl Hematocrit 36.9 % Mean Corpuscular 86.0 fl Volume Mean Corpuscular 28.4 pg Hemoglobin Mean Corpuscular 33.1 g/dl Hemoglobin Concen t Red Cell 13.0 % Distribution Width Platelet Count 242 10^3/UL Mean Platelet 10.6 fl Volume Immature 0.200 % Granulocytes % Neutrophils % 69.1 % Lymphocytes % 13.7 % Monocytes % 8.8 % Eosinophils % 7.8 % Basophils % 0.4 % Nucleated Red 0.0 /100WBC Blood Cells % Immature 0.010 10^3/ul Granulocytes # Neutrophils # 3.4 10^3/ul Lymphocytes # 0.7 10^3/ul Monocytes # 0.4 10^3/ul Eosinophils # 0.4 10^3/ul Basophils # 0.0 10^3/ul Nucleated Red 0.0 10^3/ul Blood Cells # Prothrombin Time 13.9 Sec Prothrombin Time 1.1 Ratio INR International 1.06 Normalized Ratio Activated 28.5 Sec Partial Thrombopl ast Time Urine Color YELLOW Urine Clarity CLEAR Urine pH 8.0 Urine Specific 1.021 [place] Urine Ketones NEGATIVE mg/dL Urine Nitrite NEGATIVE mg/dL Urine Bilirubin NEGATIVE mg/dL Urine NEGATIVE mg/dL Urobilinogen Urine Leukocyte NEGATIVE Margaux/ul Esterase Urine Hemoglobin NEGATIVE mg/dL Urine Glucose NEGATIVE mg/dL Urine Total NEGATIVE mg/dl Protein Test 08/02/18 10:54 POC Venous 0.3 mmol/L Lactate Current Medications Medications Dose Sig/Júnior Start Time Status Last (Trade) Ordered Route PRN Stop Time Admin Dose Reason Admin Sodium 2,810 ml BOLUS OVER 2 08/02/18 DC 08/02/18 Chloride HOURS STAT 08:35 08/02/18 09:10 (NS) IV* 08:37 Ketorolac 15 mg ONCE STAT 08/02/18 DC 08/02/18 Tromethamine IV 08:35 08/02/18 09:08 (Toradol) 08:37 650 mg ONCE ONCE 08/02/18 DC 08/02/18 Acetaminophen PO 09:00 08/02/18 09:10 (Tylenol 09:18 Tab) Ondansetron 8 mg ONCE STAT 08/02/18 DC 08/02/18 HCl (Zofran IV 08:35 08/02/18 09:16 Inj) 08:37 Procedures/MDM MDM The patient's presentation warrants further investigation. Previous medical isabell rds, if available, were reviewed. LABS The patient's laboratory testing was obtained and reviewed. No emergent treatment was required unless described below. CBC: No E/o of systemic infection or severe anemia or thrombocytopenia CMP: No E/o severe acidosis or alkalosis or renal failure or liver disease or diabetic ketoacidosis PT/INR: No E/o significant coagulopathy Lactate: No E/o severe sepsis x 2 Troponin: No E/o acute ischemia Urine: No E/o acute infection or hematuria EKG EKG read by me: Rate/Rhythm: Sinus tachycardia at 106 bpm Intervals: Normal [place]: Normal Impression: No evidence of acute ischemia. Sinus tachycardia. IMAGING Imaging and Radiology interpretation reviewed. CXR COMPARISON: 04/27/2017 FINDINGS: The heart and mediastinum are within normal limits. The lungs are clear. There is no pleural effusion or pneumothorax. The bones and soft tissue show no acute change. IMPRESSION: No definite abnormalities are identified. Electronically viewed and signed by Dane Jenkins Physician on 08/02/2018 09:11 TREATMENT/DISPOSITION The patient presents with flulike symptoms. The patient is febrile and tachycardic. A sepsis workup was completed. The patient's lactic acid is normal. While the patient does meet criteria for a systemic inflammatory response syndrome, I have low suspicion for sepsis. The patient was given IV fluids, but I have low suspicion for a bacterial infection. The patient does not have evidence of pneumonia. The patient's urinalysis is unremarkable. The patient does not have evidence of soft tissue infection. I have low suspicion for bacteremia. While the patient's influenza test is negative, I do suspect a flulike viral illness to be the etiology of her symptoms. I suspect that her symptoms will be self-limited. I do not feel the patient requires inpatient management at this time. The patient was treated with IV fluids, Toradol and Tylenol with significant improvement of her symptoms. The patient reports improvement of her fever. Her tachycardia resolved. Her myalgias and nausea improved as well. Upon reevaluation of the patient, symptoms have improved. No emergent diagnoses were identified. At this time, I feel that the patient stable for discharge. The patient was instructed to follow-up with a primary care physician in 1-3 days. The patient will be given strict precautions with which to return to the emergency department. Prescriptions: Ibuprofen, Zofran The patient's blood pressure was elevated at greater than 120/80 while in the emergency department. The patient was otherwise stable with no evidence of hypertensive urgency or emergency. The patient does not require admission for blood pressure control. I have discussed with the patient the risks of hypertension. I have instructed the patient to return to the ER for any new or worsening symptoms including chest pain, shortness of breath, headache, blurred vision, confusion, nausea, vomiting or LOC. I have advised the patient to follow up with the primary care physician for outpatient monitoring and treatment for hypertension in 1-3 days. Disclaimer: Inadvertent spelling and grammatical errors are likely due to EHR/dictation software use and do not reflect on the overall quality of patient care. Note that the electronic time recorded on this note does not necessarily reflect the actual time of the patient encounter. Departure Diagnosis: Primary Impression: Influenza-like symptoms Additional Impressions: Fever Fever type: unspecified Qualified Codes: R50.9 - Fever, unspecified Tachycardia Myalgia Nausea and vomiting Vomiting type: unspecified Vomiting Intractability: non-intractable Qualified Codes: R11.2 - Nausea with vomiting, unspecified Abdominal cramping Condition: Stable CHARAN GALLARDO MD Aug 02, 2018 08:49
[2018-08-02] MEDS ORDERED: ACETAMINOPHEN 325 MG TAB PO ONE (09:00)
[2018-08-02] MEDS ORDERED: GUAI-637 PO (09:45)
[2018-08-02] MEDS ORDERED: ZOF8 PO (12:32)
[2018-08-02] MEDS ORDERED: IBUP-1542 PO (12:32)
[2018-08-02 13:17] VITALS: BP 111/89; PULSE 93; RESP 20
== END 2018-08-02 13:25 | disposition home or self-care (01) ==
LOC: E/R 08:16
DX: R50.9 Fever, unspecified (principal); R00.0 Tachycardia, unspecified; M79.10 Myalgia, unspecified site; R11.2 Nausea with vomiting, unspecified; R10.9 Unspecified abdominal pain
CPT/HCPCS: 36415; 71045; 80053; 81003; 83605; 84484; 85025; 85610; 85730; 87040; 87086; 87400; 93005; 96374; 96375; J1885; J2405; J7030; Z7502; Z7610

== ENCOUNTER 2018-12-22 20:30 | Emergency (ER) | payer OTHER ==
[~2018-12-22] VITALS: Ht 162.6 cm; Wt 96.0 kg
[~2018-12-22 20:30] MED LIST changes: -ALBU8.5H8 INH; -CETI10CA PO; -FLUT9.9S NASAL; -GUAI-111 PO; +GUAI-637 PO; -GUAI473L22 PO; -HYDR-4011 PO; -NAPR-688 PO; -ONDA4TAB14 PO; -OXYC-203 PO; +ZOF8 PO
[2018-12-22 21:09] VITALS: Ht 162.6 cm; Wt 96.0 kg
[2018-12-23] MEDS ORDERED: KETOROLAC 30 MG INJ IM STA (00:57)
[2018-12-23] MEDS ORDERED: PRED20TA PO (00:59)
[2018-12-23] MEDS ORDERED: TRAM50TA2 PO (00:59)
[2018-12-23] MEDS ORDERED: NAPR-985 PO (00:59)
[2018-12-23] MEDS ORDERED: DEXAMETHASONE 10 MG/ML 1 ML INJ IM ONE (01:00)
--- NOTE | 2018-12-23 01:03 | ERD ---
ER Documentation Chief Complaint Chief Complaint low back pain after cleaning this morning HPI 2-year-old female with no reported past medical surgical history presents with complaint of lower back pain since this morning. Patient states she was cleaning an area on her home and bent over and suddenly felt a sharp pain to middle of lower back. Pain radiating down lower extremity. She denies any history of chronic back pain or recent injury or fall. She denies any red flag symptoms such as lower extremity paresthesias or weakness, urinary or bowel incontinence. ROS All systems reviewed and are negative except as per history of present illness. Medications Home Meds Active Scripts Naproxen* (Naprosyn*) 500 Mg Tablet, 500 MG PO BID PRN for PAIN AND/OR INFLAMMATION, #30 TAB Prov:DIEGO BUCHANAN PA-C 12/23/18 Tramadol HCl (Tramadol HCl) 50 Mg Tablet, 50 MG PO Q4 PRN for PAIN, #10 TAB Prov:DIEGO BUCHANAN PA-C 12/23/18 Prednisone* (Prednisone*) 20 Mg Tab, 40 MG PO DAILY for 4 Days, TAB Prov:DIEGO BUCHANAN PA-C 12/23/18 Ondansetron Hcl* (Zofran*) 8 Mg Tab, 8 MG PO Q6H PRN for NAUSEA AND OR VOMITING, #20 TAB Prov:CHARAN GALLARDO MD 08/02/18 Ibuprofen* (Motrin*) 600 Mg Tab, 600 MG PO Q6H PRN for PAIN AND OR ELEVATED TEMP, #30 TAB Prov:CHARAN GALLARDO MD 08/02/18 Reported Medications Guaifenesin* (Robitussin*) 100 Mg/5 Ml Syrup, 200 MG PO Q4H PRN for COUGH, ML 08/02/18 Allergies Allergies: Coded Allergies: No Known Allergy (Unverified , 06/13/12) PMhx/Soc History of Surgery: Yes (APPENDECTOMY, TUBAL LIGATION, ) Anesthesia Reaction: No Hx Neurological Disorder: No Hx Respiratory Disorders: No Hx Cardiac Disorders: Yes (HTN) Hx Psychiatric Problems: No Hx Miscellaneous Medical Probl: No Hx Alcohol Use: No Hx Substance Use: No Hx Tobacco Use: No Smoking Status: Never smoker FmHx Family History: No diabetes, No coronary disease, No other Physical Exam Vitals Vital Signs Date Temp Pulse Resp B/P (MAP) Pulse Ox O2 O2 Flow FiO2 Time Delivery Rate 12/22/18 98.8 88 18 142/60 99 21:09 (87) Physical Exam I have reviewed the triage vital signs. Const: Well nourished, well developed, appears stated age Eyes: PERRL, no conjunctival injection HENT: NCAT, Neck supple without meningismus CV: RRR, Warm, well-perfused extremities RESP: CTAB, Unlabored respiratory effort GI: soft, non-tender, non-distended, no masses MSK: No gross deformities appreciated Back Exam: Skin: No bruising or rash Compartments: Soft Motor: RLE positive straigh leg test, Normal flexion and extension of bilateral hip/knee/ankle/foot Sensation: Intact to light touch throughout Bones: No midline TTP Skin: Warm, dry. No rashes Neuro: grossly non focal Psych: Appropriate mood and affect. Results 24 hrs Current Medications Medications Dose Sig/Júnior Start Time Status Last (Trade) Ordered Route PRN Stop Time Admin Dose Reason Admin Ketorolac 30 mg ONCE STAT 12/23/18 DC Tromethamine IM 00:57 (Toradol) 12/23/18 00:59 10 mg ONCE ONCE 12/23/18 Dexamethasone IM 01:00 (Decadron) 12/23/18 01:01 Procedures/MDM 38-year-old female presents with complaint of lower back pain. Symptoms likely musculoskeletal in nature given no history of trauma or fall. Likely has a strain of lower back. Low suspicion for acute cord compression or cauda equina at this time, given presentation and symptoms, including epidural abscess or hematoma. Patient has no history of malignancy, active or distant history. Patient has no unexplained weight loss. No recent fevers, rigors, malaise, or re cent infection. No history of IVDU or skin-popping. Patient does not have any history concerning for saddle anesthesia/perianal sensory loss or complaining of decreased rectal tone. Patient does not have urinary retention or inability to control urine from overflow. Patient has no tenderness overlying spinous process. Patient has no focal weakness on examination. Given exam and history, low suspicion for cord compression, cauda equina, epidural abscess/hematoma. Distally neurovascularly intact. Query likely musculoskeletal component. Discussed pain control,and follow up with PMD. Cautious return precautions discussed w/ full understanding ED course/plan: Toradol, Decadron, will discharge with short course of steroids, appropriate pain medications DISPOSITION PLAN: We discussed follow up with the patient's primary care doctor within 24 to 48 hours. Patient counseled regarding my diagnostic impression and care plan. Prior to discharge all questions answered. Pt agrees with treatment plan and understands strict return precautions. Precautionary instructions provided including instructions to return to the ER if not improving or for any worsening or changing symptoms or concerns. Disclaimer: Inadvertent spelling and grammatical errors are likely due to EHR/di ctation software use and do not reflect on the overall quality of patient care. Also, please note that the electronic time recorded on this note does not necessarily reflect the actual time of the patient encounter. Departure Diagnosis: Primary Impression: Back pain Condition: Stable Patient Instructions: Back Pain (Acute Or Chronic), Back Pain W/ Sciatica Referrals: [facility] YOU HAVE RECEIVED A MEDICAL SCREENING EXAM AND THE RESULTS INDICATE THAT YOU DO NOT HAVE A CONDITION THAT REQUIRES URGENT TREATMENT IN THE EMERGENCY DEPARTMENT. FURTHER EVALUATION AND TREATMENT OF YOUR CONDITION CAN WAIT UNTIL YOU ARE SEEN IN YOUR DOCTORS OFFICE WITHIN THE NEXT 1-2 DAYS. IT IS YOUR RESPONSIBILITY TO MAKE AN APPOINTMENT FOR FOLOW-UP CARE. IF YOU HAVE A PRIMARY DOCTOR --you should call your primary doctor and schedule an appointment IF YOU DO NOT HAVE A PRIMARY DOCTOR YOU CAN CALL OUR PHYSICIAN REFERRAL HOTLINE AT IF YOU CAN NOT AFFORD TO SEE A PHYSICIAN YOU CAN CHOSE FROM THE FOLLOWING [facility] [address] [facility]. [facility] [address] [facility]. [facility] [address] [facility] [facility] [address] [facility]. [facility] [address] [facility]. [facility]. [address] Additional Instructions: Call your primary care doctor TOMORROW for an appointment during the next 2-3 days.See the doctor sooner or return here if your condition worsens before your appointment time. DIEGO BUCHANAN PA-C December 23, 2018 01:03
[2018-12-23 02:02] VITALS: BP 118/83; PULSE 74; RESP 18
== END 2018-12-23 02:04 | disposition home or self-care (01) ==
LOC: FTE 20:30
DX: M54.5 Low back pain (principal); I10 Essential (primary) hypertension
CPT/HCPCS: 81025; 96372; J1100; J1885; Z7502